=== PATIENT | male | born 1960 | race Two or more races ===

== ENCOUNTER 2017-11-30 10:07 | Emergency (ER) | payer MEDICAID ==
[~2017-11-30] VITALS: Ht 261.6 cm; Wt 72.6 kg
--- NOTE | 2017-11-30 10:38 | NUR ---
Patient is resting comfortably on gurney with eyes closed, but easily arousable & still c/o severe right back pains when woken up by staff. Patient is also seen moving briskly and unassisted on the gurney, respiration:easy, JORGENSEN, not in acute distress.
[2017-11-30] MEDS ORDERED: HYDROMORPHONE 1 MG/1 ML DISP.SYRIN IM ONE ×2 (10:45→13:45)
[2017-11-30] MEDS ORDERED: PROMETHAZINE HCL 25 MG/1 ML VIAL IM ONE ×2 (10:45→13:45)
[2017-11-30] MEDS ORDERED: PROMETHAZINE HCL 25 MG/1 ML VIAL ONE ×2 (10:53→13:59)
[2017-11-30] MEDS ORDERED: HYDROMORPHONE 2 MG/1 ML DISP.SYRIN ONE ×2 (10:53→13:59)
[2017-11-30] MEDS ORDERED: CARV3.122 PO (11:12)
[2017-11-30] MEDS ORDERED: FAMO20TA8 PO (11:12)
[2017-11-30] MEDS ORDERED: ASPI81TA31 PO (11:12)
[2017-11-30] MEDS ORDERED: METF500T4 PO (11:12)
[2017-11-30] MEDS ORDERED: FURO40TA5 PO (11:12)
[2017-11-30] MEDS ORDERED: LISI10TA5 PO (11:12)
[2017-11-30] MEDS ORDERED: SPIR25TA4 PO (11:12)
[2017-11-30] MEDS ORDERED: GLIP5TAB13 PO (11:12)
[2017-11-30] MEDS ORDERED: FENO145T20 PO (11:12)
[2017-11-30] MEDS ORDERED: DIGO125T PO (11:12)
--- NOTE | 2017-11-30 12:47 | NUR ---
Patient ambulated to bathroom with brisk steady gait, for discharge & waiting for his ride at this time.
--- NOTE | 2017-11-30 13:08 | NUR ---
Patient is eating hot lunch tray (diabetic tray) with good appetite, still for S ambulance brain picker.
--- NOTE | 2017-11-30 13:57 | NUR ---
Patient ate 80% of his lunch tray, no acute change in condition seen.
--- NOTE | 2017-11-30 14:20 | NUR ---
Patient discharged to [facility] home in stable conditon. Written and verbal after care instructions given to patient with rn long term care Vickie (ER registration staff). Patient verbalizes understanding of instructions. Hands off report given to [facility] ambulance EMT/staff. Telephone notice given to [facility] staff Colleen re: patient is for discharge back to the [facility].
== END 2017-11-30 14:23 | disposition home or self-care (01) ==
LOC: ER 10:07
DX: M54.5 Low back pain (principal); I10 Essential (primary) hypertension; I25.10 Atherosclerotic heart disease of native coronary artery without angina pectoris; E11.9 Type 2 diabetes mellitus without complications; Z79.82 Long term (current) use of aspirin
CPT/HCPCS: 72072; 72100; 82962; 96372 ×4; 99284; A4663; J1170 ×2; J2550 ×2